=== PATIENT | female | born 1965 | race Caucasian/White ===

== ENCOUNTER 2024-07-25 12:40 | Outpatient (CLI) | payer OTHER | END 2024-07-25 19:10 | disposition home or self-care (01) | LOC: SCT 12:40 | PROVIDERS: ATTEND Student in an Organized Health Care Education/Training Program | DX: M17.11 Unilateral primary osteoarthritis, right knee (principal) ==

== ENCOUNTER 2024-07-30 07:03 | Day surgery (SDC) | payer OTHER ==
[2024-07-14 12:35] LABS: BASOPHILS % (AUTO) 0.3 % (0.0-2.0); EOSINOPHILS # (AUTO) 0.1 K/uL (0.0-0.4); EOSINOPHILS % (AUTO) 1.2 % (0.0-4.0); HEMATOCRIT 42.7 % (36-48); HEMOGLOBIN 14.1 g/dL (12.0-16.0); LYMPHOCYTES # (AUTO) 1.7 K/uL (1.0-5.5); LYMPHOCYTES % (AUTO) 29.4 % (20.5-51.5); MEAN CORPUSCULAR HEMOGLOBIN 29 pg (27-31); MEAN CORPUSCULAR HGB CONC 33 % (32-36); MEAN CORPUSCULAR VOLUME 88 fL (79.0-98.0); MONOCYTES # (AUTO) 0.4 K/uL (0.0-1.0); MONOCYTES % (AUTO) 7.3 % (1.7-9.3); NEUTROPHILS # (AUTO) 3.5 K/uL (1.8-7.7); NEUTROPHILS % (AUTO) 61.8 % (40.0-70.0); PLATELET COUNT (AUTO) 272 K/uL (130-430); RED BLOOD CELL COUNT(AUTO) 4.86 MIL/uL (4.2-6.2); RED CELL DISTRIBUTION WIDTH 13.8 % (9.0-15.0); WHITE BLOOD COUNT (AUTO) 5.6 K/uL (4.8-10.8)
[2024-07-14 12:47] LABS: ALBUMIN 4.2 g/dL (3.4-4.8); CALCIUM 9.3 mg/dL (8.4-11.0); CREATININE 0.84 mg/dL (0.55-1.30); POTASSIUM 4.1 mmol/L (3.5-5.1); TOTAL BILIRUBIN 0.3 mg/dL (0.0-1.0); TOTAL PROTEIN, SERUM 7.3 g/dL (6.4-8.3)
[2024-07-14 12:56] LABS: INR 0.9 (0.8-1.2); PROTHROMBIN TIME 9.6 SECS (9.5-12.5)
[2024-07-14 13:16] LABS: HEMOGLOBIN A1C 5.39 % (<5.7)
[~2024-07-30] VITALS: Ht 167.6 cm; Wt 76.0 kg
[~2024-07-30 07:03] MED LIST: CEFAZOLIN SOD 2 GM in D5W 50 ML IV ONE
[2024-07-30] MEDS ORDERED: CELECOXIB 100 MG CAPSULE ONE (07:21)
[2024-07-30] MEDS ORDERED: ACETAMINOPHEN 500 MG TABLET ONE (07:21)
[2024-07-30] MEDS ORDERED: SCOPOLAMINE HYDROBROMIDE 1 MG PATCH .72 H (TRANSDERM-SCOP) TD ONE (07:33)
[2024-07-30] MEDS ORDERED: oxyCODONE HCL 10 MG TAB.ER.12H PO ONE (07:34)
[2024-07-30] MEDS ORDERED: GABAPENTIN 300 MG CAPSULE ONE (07:34)
[2024-07-30] MEDS: GABAPENTIN 300 MG CAPSULE PO ONE (07:42)
[2024-07-30] MEDS: SCOPOLAMINE HYDROBROMIDE 1 MG PATCH .72 H (TRANSDERM-SCOP) TD ONE (07:42)
[2024-07-30] MEDS: CELECOXIB 100 MG CAPSULE PO ONE (07:42)
[2024-07-30] MEDS: ACETAMINOPHEN 500 MG TABLET PO ONE (07:42)
[2024-07-30] MEDS: oxyCODONE HCL 10 MG TAB.ER.12H PO ONE (08:21)
[2024-07-30] MEDS ORDERED: ROPIVACAINE HCL/PF 5 MG/ML 0.5% 30 ML VIAL ONE (08:37)
[2024-07-30] MEDS ORDERED: ONDANSETRON HCL 4 MG/2 ML VIAL ONE (08:37)
[2024-07-30] MEDS ORDERED: LR 1,000 ML IV.SOLN IV ONE (08:37)
[2024-07-30] MEDS ORDERED: WATER FOR IRRIGATION,STERILE 1,000 ML IRRIG.SOLN IR ONE (08:37)
[2024-07-30] MEDS ORDERED: BUPIVACAINE /DEX PF 0.75% SPINAL 2 ML AMP INJ ONE (08:37)
[2024-07-30] MEDS ORDERED: NS IRRIG SOLN 1000 ML IR ONE (08:37)
[2024-07-30] MEDS ORDERED: PROPOFOL 200MG/ 20ML VIAL (DIPRIVAN) IV ONE (08:37)
[2024-07-30] MEDS ORDERED: DEXAMETHASONE SOD PHOSPHATE 4 MG/ML VIAL ONE (08:37)
[2024-07-30] MEDS ORDERED: EPINEPHrine HCL 1 MG/ML VIAL ONE (08:37)
[2024-07-30] MEDS ORDERED: TRANEXAMIC ACID 1,000 MG/10 ML VIAL ONE (08:37)
[2024-07-30] MEDS ORDERED: NS IRRIG SOLN 5000 ML IR ONE (08:37)
[2024-07-30] MEDS ORDERED: VANCOMYCIN HCL 1000 MG/VIAL IV ONE (08:37)
[2024-07-30] MEDS ORDERED: MIDAZOLAM HCL 2 MG/2 ML VIAL (VERSED) ONE (08:39)
[2024-07-30] MEDS ORDERED: PROPOFOL DRIP 100 ML IV ONE (08:39)
[2024-07-30] MEDS ORDERED: ONDANSETRON HCL 4 MG/2 ML VIAL IVP PRN ×2 (10:00→11:45)
[2024-07-30] MEDS ORDERED: fentaNYL CITRATE/PF 100 MCG/2 ML AMP IVP PRN ×2 (10:00)
[2024-07-30] MEDS ORDERED: LR 1,000 ML IV ONE (10:00)
[2024-07-30] MEDS ORDERED: traMADol HCL HCL 50 MG TABLET (ULTRAM) PO PRN (11:00)
[2024-07-30] MEDS ORDERED: LORATADINE 10 MG TABLET PO PRN (11:00)
[2024-07-30] MEDS ORDERED: HYDROmorphone 1 MG/ML INJ. CARTRIDGE IVP PRN ×3 (11:00)
[2024-07-30] MEDS ORDERED: oxyCODONE HCL 5 MG TABLET PO PRN ×2 (11:00)
[2024-07-30] MEDS ORDERED: ceFAZolin SODIUM 2 GM in D5W 50 ML IV SCH (11:15)
[2024-07-30] MEDS ORDERED: BISACODYL 10 MG/SUPPOSITORY RC PRN (11:30)
[2024-07-30] MEDS ORDERED: METOCLOPRAMIDE HCL 10 MG/2 ML VIAL IVP PRN (11:30)
[2024-07-30] MEDS: HYDROmorphone 1 MG/ML INJ. CARTRIDGE IVP PRN (11:30)
[2024-07-30] MEDS ORDERED: DIPHENHYDRAMINE HCL 25 MG CAPSULE PO PRN (11:30)
[2024-07-30] MEDS ORDERED: LACTULOSE 20 GM/30 ML UDC PO PRN (11:30)
[2024-07-30] MEDS ORDERED: HYDROmorphone 1 MG/ML INJ. CARTRIDGE ONE (11:31)
[2024-07-30] MEDS ORDERED: TAMSULOSIN HCL 0.4 MG CAP PO ONE (11:45)
[2024-07-30 13:35] VITALS: BP_SYST 108; PULSE 62; RESP 18; TEMP 97.3; O2SAT 99
[2024-07-30] MEDS ORDERED: KETOROLAC TROMETHAMINE 10 MG TABLET (TORADOL) PO SCH (14:00)
[2024-07-30] MEDS ORDERED: ACETAMINOPHEN 500 MG TABLET PO SCH (14:00)
[2024-07-30] MEDS ORDERED: SENNOSIDES/DOCUSATE SODIUM 1 TAB TABLET(SENOKOT-S) PO SCH (21:00)
[2024-07-31] MEDS ORDERED: TAMSULOSIN HCL 0.4 MG CAP PO SCH (09:00)
[2024-07-31] MEDS ORDERED: ASPIRIN 81 MG TAB.CHEW PO SCH (09:00)
[2024-07-31] MEDS ORDERED: CELECOXIB 200 MG CAPSULE PO SCH (11:00)
== END 2024-07-30 15:25 | disposition home or self-care (01) ==
LOC: SDS 07:03
PROVIDERS: ATTEND Student in an Organized Health Care Education/Training Program
DX: M17.11 Unilateral primary osteoarthritis, right knee (principal); M25.761 Osteophyte, right knee; M25.561 Pain in right knee; E66.3 Overweight; G89.18 Other acute postprocedural pain; Z68.27 Body mass index [BMI] 27.0-27.9, adult; Z96.641 Presence of right artificial hip joint; Z79.899 Other long term (current) drug therapy; Z98.890 Other specified postprocedural states
CPT/HCPCS: 36415; 71046; 73560; 80053; 83037; 85025; 85610; 85730; 87081; 88305; 88311; 97110-GP; 97116-GP; 97530-GP; C1776; J0171; J0690; J0696; J1100; J1171; J2250; J2405; J2704; J3370; J3490; J7060; J7120